=== PATIENT | male | born 1985 | race Caucasian/White ===

== ENCOUNTER → 2017-12-12 | Outpatient (CLI) | payer BC ==
[~2017-12-12] MED LIST: DONNATAL1 TABLET PO; LAXATIVE15 M2 PO; MAALOX MAXIMUM355 ML PO; NOHOMEMEDS; PEPCID20 MG PO
== END | disposition home or self-care (01) ==
LOC: AMB 10:50
PROC: 0JBN0ZZ Excision of Right Lower Leg Subcutaneous Tissue and Fascia, Open Approach (ICD-10-PCS; principal; 2017-12-12)
DX: D17.23 Benign lipomatous neoplasm of skin and subcutaneous tissue of right leg (principal)
CPT/HCPCS: 88304